=== PATIENT | male | born 1965 | race Caucasian/White ===

== ENCOUNTER 2019-01-04 10:35 | Emergency (ER) | payer MEDICAID, OTHER ==
[2019-01-04] MEDS: CLINDAMYCIN 300 MG CAP PO (11:46)
[2019-01-04] MEDS: IBUPROFEN 800 MG TAB PO (11:46)
== END 2019-01-04 11:55 | disposition home or self-care (01) ==
LOC: E/R 10:35
DX: L03.211 Cellulitis of face (principal)
CPT/HCPCS: 82962; 99283